=== PATIENT | male | born 1980 | race Caucasian/White ===

== ENCOUNTER 2017-08-07 09:34 | Observation (INO) | payer OTHER ==
[2017-08-07] MEDS ORDERED: ceFAZolin 2 GM/SWFI 2 GM/20 ML SYR IVP ONE (09:40)
[2017-08-07] MEDS ORDERED: LIDOCAINE 1% 2 ML INJ ID PRN (09:41)
[2017-08-07] MEDS ORDERED: LR 1,000 ML IV ONE (09:41)
[2017-08-07] MEDS ORDERED: BUPIVACAINE 0.5% 10 ML SDV ONE ×2 (09:52)
[2017-08-07] MEDS ORDERED: ALBUTEROL 3 ML DEYVIAL IH ONE (09:58)
--- NOTE | 2017-08-07 10:01 | PDANEPAE ---
ANE History of Present Illness 36 yo male with mass on posterior flank ANE Past Medical History - Cardiovascular History Hx Hypertension: No Hx Arrhythmias: No Hx Chest Pain: No Hx Coronary Artery / Peripheral Vascular Disease: No Hx CHF / Valvular Disease: No Hx Palpitations: No - Pulmonary History Hx COPD: No Hx Recent Upper Respiratory Infection: Yes Hx Oxygen in Use at Home: No Hx Sleep Apnea: No Pulmonary History Comment: flu positive 11 days ago. + Strep throat s/p Abx ( last dose yesterday). feels like he has a sinus infection now - Neurologic History Hx Cerebrovascular Accident: No Hx Seizures: No - Endocrine History Hx Diabetes: No Hypothyroid: No Obesity: no - Renal History Hx Renal Disorders: No - Liver History Hx Hepatic Disorders: No - GI History Hx Gastrointestinal Disorders: No ANE Review of Systems Review of Systems: - Systems Constitutional: Reports: recent illness EENMT: Reports: nose congestion Respiratory: Reports: wheezing ANE Patient History - Allergies Allergies/Adverse Reactions: No Known Allergies Allergy (Unverified 08/06/17 11:12) - Home Medications Home Medications: NK [No Known Home Meds] 08/06/17 [Last Taken Unknown] - NPO status NPO Status: no food or drink >8 hours - Anes Hx Anes Hx: no prior problems - Family Anes Hx Family Anes Hx: neg - N/A ANE Labs/Vital Signs - Vital Signs Blood Pressure: 136/82 Heart Rate: 104 O2 Sat (%): 93 ANE Physical Exam - Airway Neck exam: FROM Mallampati Score: Class 2 Mouth exam: normal dental/mouth exam - Pulmonary Pulmonary: expiratory wheeze - Cardiovascular Cardiovascular: tachycardia - ASA Status ASA Status: II ANE Anesthesia Plan Anesthesia Plan: general endotracheal anesthesia
[2017-08-07] MEDS ORDERED: ROCURONIUM 50 MG/5 ML VIAL ONE (10:15)
[2017-08-07] MEDS ORDERED: DEXAMETHASONE 4 MG/ML VIAL ONE (10:15)
[2017-08-07] MEDS ORDERED: LIDOCAINE 2% 5 ML SDV ONE (10:15)
[2017-08-07] MEDS ORDERED: PROPOFOL/EMULSION 500 MG/50 ML BOTTLE IV ONE (10:16)
--- NOTE | 2017-08-07 10:19 | PDHPUP ---
History & Physical Update H&P update statement: This history and physical update is based on an assessment of the patient which was completed after admission or registration (within 24 hours), but prior to the surgery/procedure. H&P update: H&P reviewed & patient examined, no change in patient's condition since H&P completed
[2017-08-07] MEDS ORDERED: fentaNYL 100 MCG/2 ML INJ ONE ×2 (10:21→10:51)
[2017-08-07] MEDS ORDERED: THROMBIN (BOVINE) 20,000 UNIT VIAL TP ONE (10:58)
[2017-08-07] MEDS ORDERED: KETOROLAC 30 MG/1 ML SDV ONE (11:19)
[2017-08-07] MEDS ORDERED: SUGAMMADEX SODIUM 200 MG/2 ML VIAL IVP ONE (11:19)
[2017-08-07] MEDS ORDERED: ONDANSETRON 4 MG/2 ML VIAL ONE (11:19)
[2017-08-07] MEDS ORDERED: NALOXONE HCL 0.4 MG/ML INJ IVP PRN (11:21)
[2017-08-07] MEDS ORDERED: OXYCODONE/APAP 5/325 TAB PO PRN (11:21)
[2017-08-07] MEDS ORDERED: ALBUTEROL 3 ML DEYVIAL IH PRN (11:21)
[2017-08-07] MEDS ORDERED: fentaNYL 100 MCG/2 ML INJ IVP PRN (11:21)
[2017-08-07] MEDS ORDERED: PROMETHAZINE HCL 25 MG/ML INJ IVP PRN (11:21)
[2017-08-07] MEDS ORDERED: DIAZEPAM 5 MG/ML 1 ML SYR IVP PRN (11:21)
[2017-08-07] MEDS ORDERED: BACITRACIN ZINC 14.2 GM OINTTUBE TP ONE (11:30)
--- NOTE | 2017-08-07 11:36 | POSTOPPROG ---
Post Op Note Date of Operation: 08/07/17 Surgeon: Gus Gaitan Quality Technician: ABBY Anesthesiologist: PARRA Anesthesia: GET(General Endotracheal) Pre-op Diagnosis: LUMBAR MASS Post-op Diagnosis: SAME, PATH PENDING Indication: PAIN, ENLARGEMENT Procedure: EXCISION WIDELY OF LUMBAR MASS Findings: SPINDLE CELL TUMOR, PATH PENDING Inf/Abcess present in the surg proc area at time of surgery?: No Depth: Deep Incisional (Fascial) EBL: Minimal Complications: 0 Drains: Navin Dietz Specimen(s): MASS
[2017-08-07] MEDS ORDERED: KETOROLAC 30 MG/1 ML SDV IVP ONE (11:41)
[2017-08-07] MEDS ORDERED: ONDANSETRON 4 MG/2 ML VIAL IVP PRN (11:41)
[2017-08-07] MEDS ORDERED: ONDANSETRON DISINTEGRATING 4 MG TAB PO PRN (11:41)
[2017-08-07] MEDS: OXYMETAZOLINE 30 ML NASAL SPRAY EACHNARE PRN (14:26)
[2017-08-07] MEDS: FLUTICASONE NASAL 120 SPRAYS/16 GM MDI EACHNARE SCH (16:13)
[2017-08-07] MEDS: KETOROLAC 15 MG/1 ML SDV IVP SCH (16:21)
[2017-08-07] MEDS: OXYCODONE/APAP 5/325 TAB PO PRN ×2 (17:31→21:46)
[2017-08-07 22:53] VITALS: BP 109/59
[2017-08-08] MEDS: KETOROLAC 15 MG/1 ML SDV IVP SCH ×2 (01:10→05:45)
[2017-08-08] MEDS: OXYCODONE/APAP 5/325 TAB PO PRN ×2 (05:44→09:49)
[2017-08-08] MEDS: OXYMETAZOLINE 30 ML NASAL SPRAY EACHNARE PRN (05:52)
[2017-08-08 07:25] VITALS: PULSE 71; RESP 18; TEMP 98.3; O2SAT 94
[2017-08-08] MEDS: FLUTICASONE NASAL 120 SPRAYS/16 GM MDI EACHNARE SCH (09:20)
== END 2017-08-08 10:51 | disposition home or self-care (01) ==
LOC: F3E 09:34
PROVIDERS: ADMIT Surgery; ATTEND Surgery
PROC: 0JB70ZX Excision of Back Subcutaneous Tissue and Fascia, Open Approach, Diagnostic (ICD-10-PCS; principal; 2017-08-07 11:30)
DX: D48.1 Neoplasm of uncertain behavior of connective and other soft tissue (principal)
CPT/HCPCS: 21933; G0378; J0690; J1100; J1885; J2405; J2704; J3010; J7613

== ENCOUNTER 2017-09-21 09:08 | Day surgery (SDC) | payer OTHER ==
[2017-09-21] MEDS ORDERED: ceFAZolin 2 GM/SWFI 2 GM/20 ML SYR IVP ONE (09:18)
[2017-09-21] MEDS ORDERED: LIDOCAINE 1% 2 ML INJ ID PRN (09:24)
[2017-09-21] MEDS ORDERED: LR 1,000 ML IV ONE (09:24)
[2017-09-21] MEDS ORDERED: BUPIVACAINE 0.5% 30 ML SDV ONE (12:18)
[2017-09-21] MEDS ORDERED: MIDAZOLAM 2 MG/2 ML VIAL IVP ONE (12:21)
[2017-09-21] MEDS ORDERED: LR 500 ML IV PRN (12:23)
[2017-09-21] MEDS ORDERED: oxyCODONE IR 5 MG TAB PO PRN (12:23)
[2017-09-21] MEDS ORDERED: NALOXONE HCL 0.4 MG/ML INJ IVP PRN (12:23)
[2017-09-21] MEDS ORDERED: MEPERIDINE 25 MG/ML SYR IVP PRN (12:23)
[2017-09-21] MEDS ORDERED: ACETAMINOPHEN 500 MG TAB PO PRN (12:23)
[2017-09-21] MEDS ORDERED: PROMETHAZINE HCL 25 MG/ML INJ IVP PRN (12:23)
[2017-09-21] MEDS ORDERED: ONDANSETRON 4 MG/2 ML VIAL IVP PRN (12:23)
--- NOTE | 2017-09-21 12:23 | PDANEPAE ---
ANE Past Medical History - Cardiovascular History Hx Hypertension: No Hx Arrhythmias: No Hx Chest Pain: No Hx Coronary Artery / Peripheral Vascular Disease: No Hx CHF / Valvular Disease: No Hx Palpitations: No - Pulmonary History Hx COPD: No Hx Asthma/Reactive Airway Disease: No Hx Recent Upper Respiratory Infection: No Hx Oxygen in Use at Home: No Hx Sleep Apnea: No Sleep Apnea Screening Result - Last Documented: Negative Pulmonary History Comment: flu positive 11 days ago. + Strep throat s/p Abx ( last dose yesterday). feels like he has a sinus infection now - Neurologic History Hx Cerebrovascular Accident: No Hx Seizures: No Hx Dementia: No - Endocrine History Hx Diabetes: No Obesity: no - Renal History Hx Renal Disorders: No - Liver History Hx Hepatic Disorders: No - Neurological & Psychiatric Hx Hx Neurological and Psychiatric Disorders: No - Cancer History Hx Cancer: No - Congenital Disorder History Hx Congenital Disorders: No - GI History GERD: no Hx Gastrointestinal Disorders: No - Other Health History Other Health History: NEG - Chronic Pain History Chronic Pain: No - Surgical History Prior Surgeries: L LUMBAR MASS. Elbow surgeries- sports injuy ANE Review of Systems Review of Systems: - Exercise capacity METS (RN): 5 METS ANE Patient History - Allergies Allergies/Adverse Reactions: adhesive tape Allergy (Verified 09/21/17 10:27) RASH & ITCHING Steri-strips Allergy (Uncoded 09/21/17 10:28) Itching, rash, skin peeling - Home Medications Home Medications: Cephalexin 09/20/17 [Last Taken 09/21/17 05:00] Ibuprofen 09/20/17 [Last Taken 09/20/17] - NPO status NPO Since - Liquids (Date): 09/21/17 NPO Since - Liquids (Time): 06:30 NPO Since - Solids (Date): 09/20/17 NPO Since - Solids (Time): 17:00 - Anes Hx Anes Hx: no prior problems - Smoking Hx Smoking Status: Former smoker ANE Labs/Vital Signs - Vital Signs Blood Pressure: 136/93 Heart Rate: 100 Respiratory Rate: 15 O2 Sat (%): 94 Height: 185.42 cm Weight: 83.915 kg ANE Physical Exam - Airway Neck exam: FROM Mallampati Score: Class 1 Mouth exam: normal dental/mouth exam - Pulmonary Pulmonary: no respiratory distress, no rales or rhonchi, clear to auscultation - Cardiovascular Cardiovascular: regular rate and rhythym, no murmur, rub, or gallop - ASA Status ASA Status: II ANE Anesthesia Plan Anesthesia Plan: GA w LMA
--- NOTE | 2017-09-21 13:37 | POSTOPPROG ---
Post Op Note Date of Operation: 09/21/17 Surgeon: Gus Gaitan Coat Cutter: Brigida Anesthesiologist: Ese Anesthesia: GET(General Endotracheal) Pre-op Diagnosis: Incisional infection Post-op Diagnosis: same Indication: same Procedure: I&D and culture of left lumbar mass incision, drain placement Findings: Old hematoma, purlulent drainage Inf/Abcess present in the surg proc area at time of surgery?: Yes Depth: Deep Incisional (Fascial) EBL: Minimal Drains: Cordell
--- NOTE | 2017-09-21 13:37 | POSTANESTH ---
Post Anesthetic Evaluation Cardiovascular Status: Normal, Stable, Similar to Pre-Op Cond Respiratory Status: Normal, Stable, Similar to Pre-op Cond. Level of Consciousness/Mental Status: Can Participate in Eval, Mildly Sleepy, Arousable Pain Control: Adequate, Prn Tx Ordered Nausea/Vomiting Control: Adequate, Prn Tx Ordered Complications Possibly Related to Anesthesia: None Noted
[2017-09-21] MEDS: fentaNYL 100 MCG/2 ML INJ IVP PRN ×2 (14:02→14:08)
[2017-09-21 15:14] VITALS: BP 111/82
--- NOTE | 2017-09-22 15:35 | GOP ---
[f rep st] OPERATIVE REPORT DATE OF OPERATION: 09/21/2017 SURGEON: Gus Gaitan MD CLERICAL ASSOCIATE: Hazel Allred NP ANESTHESIOLOGIST: Steve Mulligan MD PREOPERATIVE DIAGNOSIS: A right flank infected hematoma. POSTOPERATIVE DIAGNOSIS: A right flank infected hematoma. PROCEDURE PERFORMED: I and D of a right flank hematoma. FINDINGS: DESCRIPTION OF PROCEDURE: Patient was taken to the operating room where he received a satisfactory g eneral endotracheal anesthesia by Dr. Mulligan. He was placed in the prone position and prepped and venita ped in usual sterile fashion. The area was aspirated, and fluid was sent for culture. It appeared t o be old hematoma fluid. A transverse incision was made through the previous old scar, and the cavit y was entered. It was quite a large cavity, measuring over 20 cm. The contents were primarily old h ematoma. These were freed up, evacuated, and washed out thoroughly. Hemostasis was assured. Two 1- inch [place] drains were brought out through the incision and secured to the skin with 3-0 nylon sutu res. The wound was infiltrated with 0.5% Marcaine, sprayed with some topical thrombin, and dressed. He tolerated the procedure well and was taken to the recovery room in good condition. There were no complications. Blood loss from the procedure was minimal, although there was a large volume of old blood in the hematoma cavity. /[id number]/MODL
== END 2017-09-21 15:19 | disposition home or self-care (01) ==
LOC: FSGY 09:08
PROVIDERS: ATTEND Surgery
PROC: 0H96X0Z Drainage of Back Skin with Drainage Device, External Approach (ICD-10-PCS; principal; 2017-09-21 10:30)
DX: L76.32 Postprocedural hematoma of skin and subcutaneous tissue following other procedure (principal); T81.4XXA Infection following a procedure, initial encounter; B95.61 Methicillin susceptible Staphylococcus aureus infection as the cause of diseases classified elsewhere
CPT/HCPCS: J0690; J2250